=== PATIENT | female | born 1985 | race Hispanic/Latino ===

== ENCOUNTER → 2025-01-02 | Day surgery (SDC) | payer MEDICARE ==
[2024-12-21 16:17] LABS: BASOPHILS % 0.9 % (0.0-1.0); EOSINOPHILS % 2.6 % (0.0-6.0); LYMPHOCYTES % 31.1 % (18.0-39.1); MONOCYTES % 10.8 % (4.4-11.3); NEUTROPHILS % 54.3 % (38.7-80.0); RED CELL DISTRIBUTION WIDTH 18.1 % (11.7-14.4)
[~2025-01-02] MED LIST: ALBUTEROL0.63 MG/3 NEB; ARAVA20 MG PO; BUSPAR PO; BUTRANS1 EAC2 TOP; CARAFATE1 GM PO; CELEBREX100 MG PO; CREON DR 12,001 EACH PO; CYMBALTA30 MG PO; IVABRADINE HCL5 MG PO; LASIX20 MG PO; LEVSIN-SL0.125 MG SL; LYRICA150 MG PO; METHOCARBAMOL750 MG PO; MIDODRINE HCL5 MG PO; ONDANSETRON ODT8 MG PO; PANTOPRAZOLE SO40 MG PO; PROMETHAZINE HC25 M1 PO; PROPOFOL IV EMULSION 50 ML IV ONE; RINVOQ30 MG PO; SEROQUEL100 MG PO; SUMATRIPTAN SUC25 MG PO; VIT B12 PO; WELCHOL625 MG PO; [UNRECOGNIZED DRUG - OTHER] TOP
[2025-01-02] MEDS: LACTATED RINGER'S 1,000 ML ONE (06:06)
[2025-01-02 08:32] VITALS: BP 101/56; PULSE 66; RESP 17; O2SAT 98
== END | disposition home or self-care (01) ==
LOC: OR 05:20
PROVIDERS: ATTEND Internal Medicine Gastroenterology
DX: K29.50 Unspecified chronic gastritis without bleeding (principal); K21.9 Gastro-esophageal reflux disease without esophagitis; I10 Essential (primary) hypertension; E78.00 Pure hypercholesterolemia, unspecified; Z87.19 Personal history of other diseases of the digestive system; Z88.2 Allergy status to sulfonamides; Z98.84 Bariatric surgery status; Z80.0 Family history of malignant neoplasm of digestive organs; Z88.8 Allergy status to other drugs, medicaments and biological substances; Z01.810 Encounter for preprocedural cardiovascular examination; Z01.812 Encounter for preprocedural laboratory examination; Z79.1 Long term (current) use of non-steroidal anti-inflammatories (NSAID); Z79.899 Other long term (current) drug therapy
CPT/HCPCS: 36415; 43239; 85025; 88305; 88342; 93005; J2704; J7121